=== PATIENT | female | born 1985 ===

== ENCOUNTER 2018-08-07 16:29 | Emergency (ER) | payer OTHER ==
[~2018-08-07] VITALS: Ht 162.6 cm; Wt 69.9 kg
[~2018-08-07 16:29] MED LIST: INTESTINEX680 MG PO; STRIBILD TABLE1 EACH; [UNRECOGNIZED DRUG - OTHER]
== END 2018-08-07 23:12 | disposition home or self-care (01) ==
LOC: ER 16:29
DX: R42 Dizziness and giddiness (principal)